=== PATIENT | male | born 1960 | race African-American/Black ===

== ENCOUNTER 2017-07-18 14:58 | Emergency (ER) | payer MEDICAID ==
[~2017-07-18] VITALS: Ht 175.3 cm; Wt 101.0 kg
[2017-07-18 15:13] VITALS: BP 128/81
== END 2017-07-18 18:21 | disposition left against medical advice (07) ==
LOC: ER 14:58
DX: M25.561 Pain in right knee (principal); G89.29 Other chronic pain; F10.21 Alcohol dependence, in remission
CPT/HCPCS: 99281